=== PATIENT | female | born 1985 | race Caucasian/White ===

== ENCOUNTER 2018-07-09 06:38 | Inpatient (IN) | payer OTHER ==
[2018-07-09 06:45] VITALS: BMI 35.0
[2018-07-09] MEDS: Lactated Ringer's 1,000 ML IV ONE ×2 (06:45→08:45)
[2018-07-09 07:29] LABS: BASO % 0.3 % (0.0-2.0); EOS # 0.1 K/uL (0.0-0.7); EOS % 0.5 % (0.0-4.0); HEMOGLOBIN 11.6 g/dL (12.0-16.0); LYMPH # 1.6 K/uL (1.0-4.3); LYMPH % 17.3 % (20.0-40.0); MEAN CELL VOLUME 87.8 fl (81.0-99.0); MEAN CORPUSCULAR HEMOGLOBIN 29.4 pg (27.0-31.0); MEAN CORPUSCULAR HGB CONC 33.4 g/dL (33.0-37.0); MEAN PLATELET VOLUME 11.4 fl (7.2-11.7); MONO # 0.7 K/uL (0.0-0.8); MONO % 7.1 % (0.0-10.0); NEUT # 7.1 K/uL (1.8-7.0); NEUT % 74.8 % (50.0-75.0); RBC 3.95 Mil/uL (3.80-5.20); RED CELL DISTRIBUTION WIDTH 14.8 % (11.5-14.5); WHITE BLOOD COUNT 9.5 K/uL (4.8-10.8)
[2018-07-09 07:33] VITALS: RESP 18
[2018-07-09] MEDS ORDERED: ceFAZolin IV 2 gm in Dextrose 2 GM/50 ML BAG IVPB ONE (07:44)
[2018-07-09] MEDS ORDERED: Oxytocin 30 units/LR 500ML 30 UNITS/500 ML BAG IV ONE (07:45)
[2018-07-09] MEDS ORDERED: Lactated Ringer's 1,000 ML IV SCH (08:00)
[2018-07-09] MEDS ORDERED: ePHEDrine 50 mg/ml Inj ONE ×2 (08:04→09:27)
[2018-07-09] MEDS ORDERED: Phenylephrine 10 mg/ml Inj ONE (08:05)
[2018-07-09] MEDS ORDERED: Morphine 1 mg/ml preservative-free Inj(Duramorph) ONE (08:05)
[2018-07-09] MEDS ORDERED: EPINEPHrine 1 mg/ml (1:1000) Inj ONE (08:08)
[2018-07-09] MEDS ORDERED: Morphine 1 mg/ml preservative-free Inj(Duramorph) EPI ONE (08:33)
--- NOTE | 2018-07-09 10:37 | OBDS ---
DELIVERY PERSONNEL Delivery Doctor: Ward Blue MD Scrub Nurse: Rosalina Weber OBT Skein Yarn Dyer Helper: Ioana Chin RN Anesthesiologist: Tess jasmine MD MATERNAL INFORMATION Delivery Anesthesia: Spinal Medications in Delivery: Pitocin Estimated Blood Loss (ml): 800 Placenta Cultured: No Maternal Complications: None RN Comments: Atraumatic Repeat delivery of a viable babygirl with Lusty cry and Pat ient tolerated delivery well. Infant assigned 9/9 APGARs Skin to skin initiated Provider Comments: see operative report LABOR SUMMARY EDC: 07/08/2018 00:00 No. Babies in Womb: 1 Attempted: No Labor Anesthesia: None LABOR INFORMATION Reason for Induction: Not Applicable Group B Beta Strep: Negative Antibiotics # of Doses: 1 Antibiotics Time of Last Dose: 914 Steroids Given: None Reason Steroids Not Administered: Not Applicable Other Reason Not Administered: Not required MEMBRANES Membranes Rupture Method: Artificial Rupture of Membranes: 07/09/2018 09:42 Length of Rupture (hrs): 0.02 Amniotic Fluid Color: Clear Amniotic Fluid Amount: Small Amniotic Fluid Odor: Normal STAGES OF LABOR Stage 3 hrs: 0 Stage 3 min: 1 CSECTION DELIVERY Primary Indication: Repeat Elective CSection Urgency: Elective CSection Incidence: Repeat CSection Incision: Lower Uterine Transverse BABY A INFORMATION Delivery Date/Time: 07/09/2018 09:43 Method of Delivery: (Annotations: Data stored by [facility] on behalf of user) Born in Route : No : N/A Forceps: N/A Vacuum Extraction: N/A Shoulder Dystocia : No SHOULDER DYSTOCIA BABY A Infant Delivery Date/Time: 07/09/2018 09:43 PRESENTATION/POSITION BABY A Presentation: Cephalic Cephalic Presentation: Vertex Vertex Position: Left Occipital Anterior Breech Presentation: N/A PLACENTA INFORMATION BABY A Placenta Delivery Time : 07/09/2018 09:44 Placenta Method of Delivery: Spontaneous Placenta Status: Delivered SCORES BABY A Heart Rate 1 min: >100 bpm Resp Effort 1 min: Good Cry Reflex Irritability 1 min: Cough or Sneeze or Pulls Away Muscle Tone 1 min: Active Motion Color 1 min: Body [place], Extremities Blue Resuscitation Effort 1 min: N/A SCORE 1 MIN: 9 Heart Rate 5 min: >100 bpm Resp Effort 5 min: Good Cry Reflex Irritability 5 min: Cough or Sneeze or Pulls Away Muscle Tone 5 min: Active Motion Color 5 min: Body [place], Extremities Blue Resuscitation Effort 5 min: N/A SCORE 5 MIN: 9 INFORMATION BABY A Gestational Age at Delivery: 40.0 Gestational Status: Term (Annotations: Data stored by [facility] on behalf of user) Outcome : Liveborn Condition : Stable Infant Sex: Female IDENTIFICATION/MEDS BABY A ID Band Number: [id number] ID Band Location: Left Leg; Left Arm WEIGHT/LENGTH BABY A Infant Birthweight (gms): 3290 Weight (lb): 7 Infant Weight (oz): 4 Infant Length Inches: 19.50 Length cms: 49.5 CORD INFORMATION BABY A No. Cord Vessels: 3 Nuchal Cord : N/A Cord Blood Taken: N/A Infant Suction: Mouth ASSESSMENT BABY A Complications: None Physical Findings at Delivery: Within Normal Limits Respirations: Appears Normal Casting Inspector/ALS Called : No Infant Care By: Dr Chung Transferred To: Remains with Mother
--- NOTE | 2018-07-09 10:40 | OBADHP ---
Datetime: 07/09/2018 07:52 Admit Comment, IP Provider: 32 YO with IUP at EGA 40.1 Wks EDC 07/08/18, who presents today to LD for an scheduled repeat , patient had first in 2014 due to breech presentat ion. Patient today states feeling well, pa denies VB, LOF, CONTX, headaches, chest pain, abdominal pa in, blurry vision, dizziness, N/V/D, dysuria, fever or chills. Patient reports +FM. ROS: unremarkable, except as per HPI. provider: Dr Blue. OBGYN: Denies h/o STI, reports normal current . Patient reports h/o of 2 miscarriages in the past. PMH: Denies FMH: Mother suffered a stroke. ALL: NKA SURG: Breast lumpectomy SOCHx: Denies Tob/ETOH/Drug use MEDS: VIT LABS: 04/16 RPR neg, HIV neg, HB neg, 06/11 GBS neg. O+ Ab neg PE GEN: NAD HEENT: NCAT RESP: CTA b/l CV: RRR, S1 S2 present normal, no murmurs noted ABD: Gravid, soft, no tenderness EXT: No Edema A/P 32 YO with IUP at EGA 40.1 Wks EDC 07/08/18, presenting for scheduled repeat , wi th h/o first due to breech section. Plan -Admit to [facility] -Maternal VS monitoring -FHR Monitoring -CBC, Type and screen Case discussed with attending Oswaldo Vallejo MD PGY1 The patient was seen with the resident I agree witht the note Lungs - PN: Normal Heart - PN: Normal HEENT - PN: Normal General - PN: Normal Comments, ACOG Physical Exam: see triage comments IP Hx Assessment: The History has been Reviewed and is Current IP Chief Complaint: Scheduled Section EGA AdmitDate IP: 40.1 IP Adm Impression: Term, intrauterine IP Admit Plan: Admit to unit; Initiate Section protocol
[2018-07-09] MEDS ORDERED: OXYTOCIN/0.9 % NS 20 UNIT/1,000 ML BAG IV ONE (10:42)
[2018-07-09] MEDS ORDERED: Oxycodone/Acetaminophen 5/325 mg Tab PO PRN ×4 (10:42→13:11)
[2018-07-09] MEDS ORDERED: Oxytocin 30 UNIT 30 UNITS/500 ML BAG IV ONE (10:42)
[2018-07-09] MEDS: Lactated Ringer's 1,000 ML IV SCH ×2 (13:20→18:48)
--- NOTE | 2018-07-09 21:24 | OP ---
PROCEDURE DATE: 07/09/2018 PREOPERATIVE DIAGNOSES: Intrauterine at 40 weeks, history of previous delivery. POSTOPERATIVE DIAGNOSES: Intrauterine at 40 weeks, history of previous delivery. OPERATION PERFORMED: Repeat low flap transverse section via Pfannenstiel skin incision. SURGEON: Sylvia Blue MD RELIABILITY TECHNOLOGIST: Morales Farmer DO. Dr. Farmer was instrumental in the care of the patient. He helped to create exposure. He was helpful in obtaining hemostasis, helpful in delivering the infant and closure of the patient. The procedure would not have been possible without his assistance. ANESTHESIA: Spinal. ANESTHESIA ADMINISTERED BY: Veronica Garcia MD ESTIMATED BLOOD LOSS: 800 mL. URINE OUTPUT: Rivas catheter put out approximately 200 mL of clear urine. INTRAVENOUS FLUIDS: The patient received 1400 mL of D5 LR intraoperatively. FINDINGS: The operative findings were baby girl, Apgars 9 and 9, vertex presentation, weighing 3290 g. Normal uterus, tubes, and ovaries were identified. DESCRIPTION OF PROCEDURE: After informed consent was obtained, the patient was taken to the operating room where she was given spinal anesthesia. She was prepped and draped in a normal sterile fashion with a leftward tilt. A Pfannenstiel skin incision was then made with the scalpel and carried down to the underlying layer of fascia. The fascia was nicked in the midline. The fascial incision was then extended laterally with a curved Lyon scissors. The superior aspect of the fascial incision was then grasped with Macario clamps, elevated up, and the rectus muscles were dissected off using both sharp and blunt dissections. Attention was then turned to the inferior aspect of the fascial incision which in a similar fashion was grasped with Macario clamps, elevated up, and the rectus muscles were dissected off using both sharp and blunt dissections. The rectus muscles were then in the midline. The peritoneum was identified and entered sharply with the Metzenbaum scissors. The peritoneal incision was then extended superiorly and inferiorly with good visualization of the bladder. The bladder blade was inserted and vesicouterine peritoneum identified and entered sharply with the Metzenbaum scissors. The incision was then extended laterally and the bladder flap was created digitally. The bladder blade was then readjusted and a low-transverse incision was made with the scalpel. The uterine incision was then extended laterally with bandage scissors. The infant's head was then delivered atraumatically. The nose and mouth were suctioned with DeLee suction trap. The cord was clamped and cut. The was handed off to awaiting pediatricians. Cord blood was obtained. The placenta was then removed manually. The uterus was exteriorized and cleared of all clots and debris. The uterine incision was repaired with 0 Vicryl in a running locked fashion. The second layer of the same suture was used to obtain excellent hemostasis. The uterus was returned to the abdomen. The abdomen was then copiously irrigated. The irrigant was removed with the suction device. The gutters were cleared of all clots and debris. The uterine incision was then re-examined and noted to be hemostatic. The peritoneum was then closed with 2-0 Vicryl in a running fashion. The muscle was reapproximated with 0 Vicryl in an interrupted fashion. The fascia was closed with 0 Vicryl in a running fashion. Then, the skin was closed with a 3-0 on a Marlon needle. All sponge, lap, needle, and instrument counts were correct x2, and the patient was taken to the recovery room in awake and stable condition. Sylvia Blue MD
[2018-07-10 06:21] LABS: HEMOGLOBIN 9.5 g/dL (12.0-16.0); MEAN CELL VOLUME 87.9 fl (81.0-99.0); MEAN CORPUSCULAR HEMOGLOBIN 28.8 pg (27.0-31.0); MEAN CORPUSCULAR HGB CONC 32.8 g/dL (33.0-37.0); RBC 3.31 Mil/uL (3.80-5.20); WHITE BLOOD COUNT 8.8 K/uL (4.8-10.8)
--- NOTE | 2018-07-10 07:41 | OBPPN ---
Datetime: 07/10/2018 07:34 PP Pain Prov: Within normal limits PP Nausea Prov: Denies PP Flatus Prov: No PP BM Prov: No PP Abdomen/Uterus Prov: Normal PP Lochia Prov: Normal PP Extremities Prov: Normal PP C/S Incision Prov: Normal PP Progress Prov: Normal PP Comments Phys Exam Prov: Incision w/ bandage in place PP Impression Prov: Normal progression PP Plan Prov: Continue present management PP Progress Note Prov: POD 1 s/p Repeat c/s, doing well, breast and bottle feeding Continue current care Vital Signs Provider PP: Reviewed
[2018-07-10] MEDS ORDERED: Multivitamin With Minerals Tab PO SCH (09:00)
[2018-07-10] MEDS: Multivitamin With Minerals Tab PO SCH (09:01)
[2018-07-10] MEDS: Lactated Ringer's 1,000 ML IV SCH (13:57)
[2018-07-11] MEDS: Lactated Ringer's 1,000 ML IV SCH ×2 (05:11→13:50)
[2018-07-11] MEDS: Multivitamin With Minerals Tab PO SCH (08:45)
[2018-07-11 11:42] LABS: RUBELLA AB (IGG) <0.90 index
[2018-07-12] MEDS ORDERED: Measles, Mumps, and Rubella 0.5 ML VIAL SC ONE ×2 (07:27→09:00)
[2018-07-12] MEDS: Multivitamin With Minerals Tab PO SCH (09:09)
--- NOTE | 2018-07-12 10:51 | OBPPN ---
Datetime: 07/12/2018 10:50 PP Pain Prov: Within normal limits PP Nausea Prov: Denies PP Flatus Prov: Yes PP BM Prov: Yes PP Breasts Prov: Normal PP Heart Prov: Normal PP Lungs Prov: Normal PP Abdomen/Uterus Prov: Normal PP Lochia Prov: Normal PP Vulva/Perineum Prov: Normal PP CVA Tenderness Prov: Normal PP Extremities Prov: Normal PP Comments Phys Exam Prov: Fundus firm under umbilicus Incision clean/dry/intact PP Impression Prov: Normal progression PP Plan Prov: Continue present management; Discharge PP Progress Note Prov: Patient denies CP, no SOB, no N/V, tolerating PO diet, ambulating/voiding wel l, mild lochia, abdominal pain tolerable with meds A/p 1. Patient for discharge today 2. Discharge instructions reviewed IP PP Procedures: None Vital Signs Provider PP: Reviewed; Within Normal Limits
--- NOTE | 2018-07-12 10:53 | OBDCSUM ---
Datetime: 07/12/2018 10:38 Discharged to, Provider: Home Follow up at, Provider: [facility] office Disch Instr Activity: Normal activity Disch Instr Diet: Regular Discharge Instructions, Provider: Routine instructions given Discharge Diagnosis, Provider: Term Delivered Discharge Time: 07/12/2018 10:51 Follow up in weeks, Provider: in 1 week and 4-6 weeks. Disch Referrals: None Contraception discussed, Prov: No Disch Activity Restrictions: No exercising; Minimize stair-climbing; Nothing in vagina - [place] , tampons, douche
[2018-07-12 18:42] VITALS: BP 104/70; PULSE 86; TEMP 98.8; O2SAT 98
== END 2018-07-12 11:45 | disposition home or self-care (01) | DRG 371 ==
LOC: H.L&D 06:47 → H.OB/GYN 13:00
PROVIDERS: ADMIT Obstetrics & Gynecology; ATTEND Obstetrics & Gynecology
PROC: 10D00Z1 Extraction of Products of Conception, Low, Open Approach (ICD-10-PCS; principal; 2018-07-09)
PROC: 4A1HXCZ Monitoring of Products of Conception, Cardiac Rate, External Approach (ICD-10-PCS; 2018-07-09)
DX: O34.211 Maternal care for low transverse scar from previous cesarean delivery (principal); O48.0 Post-term pregnancy; Z3A.40 40 weeks gestation of pregnancy; Z37.0 Single live birth